=== PATIENT | male | born 1960 | race Caucasian/White ===

== ENCOUNTER 2017-05-18 10:21 | Emergency (ER) | payer BC ==
[2017-05-18 11:07] LABS: BASO % 0.7 % (0-6); EOS % 6.5 % (0-6); HEMATOCRIT 40.4 % (42.0-52.0); HEMOGLOBIN 13.9 gm/dl (14.0-18.0); LYMPH % 23.2 % (16-45); MEAN CELL VOLUME 83.1 fl (81-97); MEAN CORPUSCULAR HEMOGLOBIN 28.6 pg (27-33); MEAN CORPUSCULAR HGB CONC 34.4 g/dl (32-36); MEAN PLATELET VOLUME 12.6 fl (7.4-10.4); MONO % 8.6 % (0-9); PLATELET COUNT 205 K/uL (130-400); RED BLOOD COUNT 4.86 M/uL (4.40-5.70); RED CELL DISTRIBUTION WIDTH 14.1 % (11.5-14.5); WHITE BLOOD COUNT W/O DIFF 5.4 K/uL (4.2-12.2)
[2017-05-18 11:17] LABS: BLOOD UREA NITROGEN 13 mg/dL (6-20); EST GLOMERULAR FILTRATION RATE > 60 mL/min
[2017-05-18 11:20] LABS: GLUCOSE,RANDOM 203 mg/dL (74-109)
[2017-05-18 11:44] LABS: ALKALINE PHOSPHATASE 57 U/L (40-129); ALT/SGPT 26 U/L (<41); AST/SGOT 20 U/L (10.0-50.0); BILIRUBIN,DIRECT < 0.2 mg/dL (0-0.3); TOTAL PROTEIN 7.1 g/dL (6.6-8.7)
--- NOTE | 2017-05-18 12:22 | Emergency Department Record ---
History of Present Illness - General Chief Complaint: Chest Pain Stated Complaint: right rib pain Time Seen by Provider: 05/18/17 10:59 Source: Patient Mode of Arrival: Ambulatory Limitations: No limitations - History of Present Illness Initial Comments: pt sent over from dr voss for ct to r/o pe because pt has has r cp for a month that gets worse w inspiration and is not reproducible Complaint: Chest pain Onset/Timin -: Month(s) Pain Location: Right chest Severity: Mild Severity scale (1-10): 7 Quality: Aching, Dull Consistency: Intermittent Improves With: Rest Worsens With: Movement Treatments Prior to Arrival: None - Related Data Allergies Allergy/AdvReac Type Severity Reaction Status Date / Time No Known Allergies Allergy HYPERSENSIT Unverified 05/18/17 10:31 IVITY Travel Screening - Travel/Exposure Within Last 30 Days Have you traveled within the last 30 days?: No - Travel/Exposure Within Last Year Have you traveled outside the [place] in the last year?: No - Additonal Travel Details Have you been exposed to anyone with a communicable illness?: No - Travel Symptoms Symptom Screening: None Review of Systems Reviewed: No additional complaints except as noted below Constitutional: Reports: As per HPI. Denies: Chills, Fever, Malaise, Night sweats, Weakness, Weight change Eyes: Reports: As per HPI. Denies: Eye discharge, Eye pain, Photophobia, Vision change ENT: Reports: As per HPI. Denies: Congestion, Dental pain, Ear pain, Epistaxis , Hearing loss, Throat pain Respiratory: Reports: As per HPI. Denies: Cough, Dyspnea, Hemoptysis, Stridor, Wheezes Cardiovascular: Reports: As per HPI. Denies: Arrhythmia, Chest pain, Dyspnea on exertion, Edema, Murmurs, Orthopnea, Palpitations, Paroxysmal nocturnal dyspnea, Rheumatic Fever, Syncope Endocrine: Reports: As per HPI. Denies: Fatigue, Heat or cold intolerance, Polydipsia, Polyuria Gastrointestinal: Reports: As per HPI. Denies: Abdominal pain, Constipation, Diarrhea, Hematemesis, Hematochezia, Melena, Nausea, Vomiting Genitourinary: Reports: As per HPI. Denies: Dysuria, Frequency, Hematuria, Incontinence, Retention, Testicular pain, Testicular mass, Urgency Musculoskeletal: Reports: As per HPI, Back pain. Denies: Arthralgia, Gout, Joint swelling, Myalgia, Neck pain Skin: Reports: As per HPI. Denies: Bruising, Change in color, Change in hair/ nails, Lesions, Pruritus, Rash Neurological: Reports: As per HPI. Denies: Abnormal gait, Confusion, Headache, Numbness, Paresthesias, Seizure, Tingling, Tremors, Vertigo, Weakness Psychiatric: Reports: As per HPI. Denies: Anxiety, Auditory hallucinations, Depression, Homicidal thoughts, Suicidal thoughts, Visual hallucinations Hematological/Lymphatic: Reports: As per HPI. Denies: Anemia, Blood Clots, Easy bleeding, Easy bruising, Swollen glands Past Medical History - SOCIAL HISTORY Smoking Status: Never smoker Alcohol Use: None Drug Use: None - RESPIRATORY Hx Respiratory Disorders: Yes Hx Asthma: Yes Hx Sleep Apnea: Yes Hx of CPAP: Yes - CARDIOVASCULAR Hx Cardio Disorders: Yes Hx Hypertension: Yes Comment:: blood clots - NEURO Hx Neuro Disorders: No - GI Hx GI Disorders: No - Hx Genitourinary Disorders: No - ENDOCRINE Hx Endocrine Disorders: Yes Hx Diabetes: Yes - MUSCULOSKELETAL Hx Musculoskeletal Disorders: No - PSYCH Hx Psych Problems: No - HEMATOLOGY/ONCOLOGY Hx Hematology/Oncology Disorders: No Family Medical History Any Significant Family History?: Yes Hx Resp Disorders: Father Physical Exam - General General Appearance: Alert, Oriented x3, Cooperative, Mild distress - Head Head exam: Normal inspection - Eye Eye exam: Normal appearance, PERRL, EOMI Pupils: Normal accommodation - ENT ENT exam: Normal exam, Mucous membranes moist, Normal external ear exam, Normal orophraynx, TM's normal bilaterally Ear exam: Normal external inspection. negative: External canal tenderness Nasal Exam: Normal inspection. negative: Discharge, Sinus tenderness Mouth exam: Normal external inspection, Tongue normal Teeth exam: Normal inspection. negative: Dental caries Throat exam: Normal inspection. negative: Tonsillar erythema, Tonsillar exudate - Neck Neck exam: Normal inspection, Full ROM. negative: Tenderness - Respiratory Respiratory exam: Normal lung sounds bilaterally. negative: Respiratory distress - Cardiovascular Cardiovascular Exam: Regular rate, Normal rhythm, Normal heart sounds - GI/Abdominal GI/Abdominal exam: Soft, Normal bowel sounds. negative: Tenderness - Rectal Rectal exam: Deferred - exam: Deferred - Extremities Extremities exam: Normal inspection, Full ROM, Normal capillary refill. negative: Tenderness - Back Back exam: Reports: Normal inspection, Full ROM. Denies: Muscle spasm, Rash noted, Tenderness - Neurological Neurological exam: Alert, CN II-XII intact, Normal gait, Oriented X3 - Psychiatric Psychiatric exam: Normal affect, Normal mood - Skin Skin exam: Dry, Intact, Normal color, Warm Course Vital Signs 05/18/17 10:22 Temperature 97.6 F Pulse Rate 71 Respiratory 18 Rate Blood Pressure 134/85 Pulse Ox 96 Medical Decision Making - Lab Data Result diagrams: 05/18/17 10:54 05/18/17 10:54 Lab Results 05/18/17 05/18/17 05/18/17 Range/Units 10:54 10:54 10:54 WBC 5.4 (4.2-12.2) K/uL RBC 4.86 (4.40-5.70) M/uL Hgb 13.9 L (14.0-18.0) gm/dl Hct 40.4 L (42.0-52.0) % MCV 83.1 (81-97) fl MCH 28.6 (27-33) pg MCHC 34.4 (32-36) g/dl RDW 14.1 (11.5-14.5) % Plt Count 205 (130-400) K/uL MPV 12.6 H (7.4-10.4) fl Gran % 61.0 (47-80) % Lymphocytes % 23.2 (16-45) % Monocytes % 8.6 (0-9) % Eosinophils % 6.5 H (0-6) % Basophils % 0.7 (0-6) % Sodium 137 (136-145) mmol/L Potassium 3.9 (3.4-4.5) mmol/L Chloride 97 L (98-107) mmol/L Carbon Dioxide 28.0 (22-29) mmol/L Anion Gap 12.0 (7-16) BUN 13 (6-20) mg/dL Creatinine 1.0 (0.7-1.2) mg/dL Estimated GFR > 60 mL/min Random Glucose 203 H (74-109) mg/dL Calcium 8.8 (8.6-10.0) mg/dL Total Bilirubin 0.50 (0.2-1.0) mg/dL Direct Bilirubin < 0.2 (0-0.3) mg/dL AST 20 (10.0-50.0) U/L ALT 26 (<41) U/L Alkaline Phosphatase 57 (40-129) U/L Troponin T < 0.010 (0-0.010) ng/mL Total Protein 7.1 (6.6-8.7) g/dL Albumin 4.0 (4.0-5.0) g/dL Disposition Disposition: Discharge Clinical Impression: Thoracic back pain Qualifiers: Chronicity: acute Back pain laterality: right Qualified Code(s): M54.6 - Pain in thoracic spine Disposition: Home, Self-Care Condition: (1) Good Instructions: Thoracic Pain (ED) Additional Instructions: follow up with family doctor. return sooner if worse. Quality - Quality Measures Quality Measures: N/A - Blood Pressure Screening Does Patient Have Any of the Following: No Blood Pressure Classification: Pre-Hypertensive BP Reading Systolic Measurement: 134 Diastolic Measurement: 85 Screening for High Blood Pressure: < Pre-Hypertensive BP, F/U Documented > [ G8950] Pre-Hypertensive Follow-up Interventions: Follow-up with rescreen every year.
--- NOTE | 2017-05-19 12:35 | CT ANGIOGRAM REPORT ---
DATE: 05/18/2017. EXAM: CT ANGIOGRAM OF THE CHEST. HISTORY: Posterior rib pain for one month. TECHNIQUE: CT angiogram of the chest performed following intravenous administration of 100 mL of Omnipaque 350 contrast. Axial images were obtained with coronal and sagittal maximum-intensity projection reconstructions. COMPARISON: None. FINDINGS: Negative for pulmonary embolus, thoracic aortic aneurysm, or dissection. However, suboptimal opacification of distal arterial branches secondary to poor contrast bolus. There is no large or central pulmonary embolus. Negative for mediastinal or hilar adenopathy. The heart and pericardium are unremarkable. Limited evaluation of the upper abdomen shows a small hiatal hernia. Fatty infiltrative change to the liver. Osseous structures are grossly intact. The visualized airways are patent. A 2.0 mm subpleural nodule in the lateral right upper lobe. The lungs are otherwise clear. IMPRESSION: SUBOPTIMAL CONTRAST BOLUS. HOWEVER, NO CONVINCING EVIDENCE FOR PULMONARY EMBOLUS. A SMALL HIATAL HERNIA. A 2.0 MM SUBPLEURAL NODULE IN THE LATERAL RIGHT UPPER LOBE. FATTY INFILTRATIVE CHANGE TO THE LIVER. JOB NUMBER: [id number] MTDD
== END 2017-05-18 13:24 | disposition home or self-care (01) ==
LOC: ER 10:21
DX: M54.6 Pain in thoracic spine (principal); R07.81 Pleurodynia; I10 Essential (primary) hypertension
CPT/HCPCS: 99283; 99284; 85025; 80076; 80048; 83036; 84443; 84484; 71275; Q9967

== ENCOUNTER 2018-06-24 12:34 | Emergency (ER) | payer SELFPAY ==
[2018-06-24] MEDS ORDERED: ACETAMINOPHEN 325 MG TAB PO ONE (12:58)
--- NOTE | 2018-06-24 13:01 | Emergency Department Record ---
History of Present Illness - General Chief complaint: Pain Stated complaint: RT SHOULDER PAIN Time Seen by Provider: 06/24/18 12:54 Source: Patient Mode of Arrival: Ambulatory Limitations: No limitations - History of Present Illness Initial comments: The patient is here due to R shoulder pain for 3 days. He was at work lifting boxes and heavy objects on Sun and Sun of last week and then Fri night began to feel worsening pain to the R shoulder. The pain is worse with ROM. There has been no fall or trauma and the patient states he has had similar problems like this in the past. He was told to come to the ER for treatment from work. MD Complaint: Joint pain Onset/Timin -: Days(s) Location: Right, Shoulder History of Same: Yes Radiation: None Severity scale (1-10): 4 Quality: Aching Consistency: Constant Improves with: Nothing Worsens with: Nothing Associated Symptoms: Denies other symptoms - Related Data Allergies Allergy/AdvReac Type Severity Reaction Status Date / Time No Known Drug Allergies Allergy Unverified 04/24/18 16:49 Travel Screening - Travel/Exposure Within Last 30 Days Have you traveled within the last 30 days?: No Review of Systems Constitutional: Denies: Chills, Fever Eyes: Denies: Eye discharge ENT: Denies: Congestion Respiratory: Denies: Cough, Dyspnea Past Medical History - SOCIAL HISTORY Smoking Status: Never smoker - RESPIRATORY Hx Respiratory Disorders: Yes Hx Asthma: Yes Hx Sleep Apnea: Yes Hx of CPAP: Yes - CARDIOVASCULAR Hx Cardio Disorders: Yes Hx Hypertension: Yes Comment:: blood clots - NEURO Hx Neuro Disorders: No - GI Hx GI Disorders: No - Hx Genitourinary Disorders: No - ENDOCRINE Hx Endocrine Disorders: Yes Hx Diabetes: Yes - MUSCULOSKELETAL Hx Musculoskeletal Disorders: No - PSYCH Hx Psych Problems: No - HEMATOLOGY/ONCOLOGY Hx Hematology/Oncology Disorders: No Family Medical History Any Significant Family History?: Yes Hx Resp Disorders: Father Physical Exam - General General Appearance: Alert, Oriented x3, Cooperative, No acute distress - Head Head exam: Atraumatic, Normocephalic, Normal inspection - Eye Eye exam: Normal appearance, PERRL - Neck Neck exam: Normal inspection, Full ROM. negative: Tenderness - Respiratory Respiratory exam: Normal lung sounds bilaterally. negative: Respiratory distress - Cardiovascular Cardiovascular Exam: Regular rate, Normal rhythm, Normal heart sounds - Extremities Extremities exam: Normal inspection, Normal capillary refill, Tenderness (There is tenderness to palpation over the anterior R shoulder over the biceps tendon. ), Other (The R arm is NVI.). negative: Full ROM (There is decreased full ROM of the R shoulder due to pain. The patient is able to abduct to 90 degrees.), Joint swelling Course Vital Signs 06/24/18 12:48 Temperature 98.4 F Pulse Rate 77 Respiratory 18 Rate Blood Pressure 138/78 Pulse Ox 95 - Reevaluation(s) Reevaluation #1: The patient is presently resting comfortably with his R arm in a sling. I did discuss the xray results with him and the need for F/U with Occupational Health later this week for further evaluation of the R shoulder. 06/24/18 13:40 Medical Decision Making - Data Complexity MDM Data: X-Ray Ordered and/or Reviewed - Radiology Data Radiology results: Report reviewed (R shoulder: neg for acute changes. Arthritic changes to the rotator cuff consistent with calcific tendinosis.) Disposition Forms: Patient Portal Access Quality - Quality Measures Quality Measures: N/A - Blood Pressure Screening View Details: Yes Does Patient Have Any of the Following: No Blood Pressure Classification: Pre-Hypertensive BP Reading Systolic Measurement: 138 Diastolic Measurement: 78 Screening for High Blood Pressure: < Pre-Hypertensive BP, F/U Documented > [ G8950] Pre-Hypertensive Follow-up Interventions: Referral to alternative/primary care provider.
--- NOTE | 2018-06-24 13:51 | Emergency Department Record ---
History of Present Illness - General Chief complaint: Pain Stated complaint: RT SHOULDER PAIN Time Seen by Provider: 06/24/18 12:54 Source: Patient Mode of Arrival: Ambulatory Limitations: No limitations - History of Present Illness Onset/Timin -: Days(s) Location: Right, Shoulder History of Same: Yes Radiation: None Severity scale (1-10): 4 Quality: Aching Consistency: Constant Improves with: Nothing Worsens with: Nothing Associated Symptoms: Denies other symptoms - Related Data Allergies Allergy/AdvReac Type Severity Reaction Status Date / Time No Known Drug Allergies Allergy Unverified 04/24/18 16:49 Travel Screening - Travel/Exposure Within Last 30 Days Have you traveled within the last 30 days?: No Review of Systems Constitutional: Denies: Chills, Fever Eyes: Denies: Eye discharge ENT: Denies: Congestion Respiratory: Denies: Cough, Dyspnea Past Medical History - SOCIAL HISTORY Smoking Status: Never smoker - RESPIRATORY Hx Respiratory Disorders: Yes Hx Asthma: Yes Hx Sleep Apnea: Yes Hx of CPAP: Yes - CARDIOVASCULAR Hx Cardio Disorders: Yes Hx Hypertension: Yes Comment:: blood clots - NEURO Hx Neuro Disorders: No - GI Hx GI Disorders: No - Hx Genitourinary Disorders: No - ENDOCRINE Hx Endocrine Disorders: Yes Hx Diabetes: Yes - MUSCULOSKELETAL Hx Musculoskeletal Disorders: No - PSYCH Hx Psych Problems: No - HEMATOLOGY/ONCOLOGY Hx Hematology/Oncology Disorders: No Family Medical History Any Significant Family History?: Yes Hx Resp Disorders: Father Physical Exam - General Limitations: No limitations Course Vital Signs 06/24/18 12:48 Temperature 98.4 F Pulse Rate 77 Respiratory 18 Rate Blood Pressure 138/78 Pulse Ox 95 Disposition Disposition: Discharge Clinical Impression: Strain of shoulder, right Qualifiers: Encounter type: initial encounter Qualified Code(s): S46.911A - Strain of unspecified muscle, fascia and tendon at shoulder and upper arm level, right arm , initial encounter Disposition: Home, Self-Care Condition: (2) Stable Instructions: Calcific Tendinitis (ED) Additional Instructions: Please keep the R arm in a sling for a week and use your home pain medicines as needed. Please see your Occupational Health provider in 3-4 days for recheck. Forms: Patient Portal Access Time of Disposition: 13:51 Quality - Quality Measures Quality Measures: N/A - Blood Pressure Screening View Details: Yes Does Patient Have Any of the Following: No Blood Pressure Classification: Pre-Hypertensive BP Reading Systolic Measurement: 138 Diastolic Measurement: 78 Screening for High Blood Pressure: < Pre-Hypertensive BP, F/U Documented > [ G8950] Pre-Hypertensive Follow-up Interventions: Referral to alternative/primary care provider.
--- NOTE | 2018-06-25 13:12 | RADIOLOGY REPORT ---
EXAM: RIGHT SHOULDER HISTORY: RIGHT SHOULDER PAIN. TECHNIQUE: Three views of the right shoulder were obtained. Comparison: Chest radiograph 08/27/15. FINDINGS: The frontal view is limited by decreased patient rang of motion. No acute fracture is seen. No dislocation. Amorphous calcific focus near the superior humeral head measuring up to 2.3 cm suggesting calcific tendinosis. Small glenohumeral osteophytes suggesting mild glenohumeral arthrosis. Mild to moderate acromioclavicular joint arthrosis with inferiorly projecting osteophytes. IMPRESSION: 1. NO ACUTE OSSEOUS FINDINGS. 2. SUGGESTION OF CALCIFIC TENDINOSIS, MOST LIKELY INVOLVING THE ROTATOR CUFF. 3. DEGENERATIVE CHANGES OF THE GLENOHUMERAL AND ACROMIOCLAVICULAR JOINTS. JOB [facility]BER: [id number] [facility]
== END 2018-06-24 13:59 | disposition home or self-care (01) ==
LOC: ER 12:34
DX: S46.911A Strain of unspecified muscle, fascia and tendon at shoulder and upper arm level, right arm, initial encounter (principal); I10 Essential (primary) hypertension; X50.0XXA Overexertion from strenuous movement or load, initial encounter; Y99.0 Civilian activity done for income or pay
CPT/HCPCS: 99283